=== PATIENT | female | born 1985 | race Hispanic/Latino ===

== ENCOUNTER 2018-02-26 07:54 | Outpatient (CLI) | payer OTHER ==
--- NOTE | 2018-02-26 12:51 | ULT ---
OBSTETRICAL ULTRASOUND: INDICATIONS: Evaluate size, dates, and anatomy. FINDINGS: There is a single live intrauterine gestation in a cephalic presentation. The placenta is posterior in location without evidence of previa. Cardiac activity is noted at 143 beats per minute. The biparietal diameter measured 5.49 cm, giving an estimated gestational age of 22 weeks 5 days (58t h percentile). The head circumference is measured at 20.38 cm, giving an estimated gestational age of 22 weeks 4 day s (40th percentile). The abdominal circumference is measured at 18.06 cm, giving an estimated gestational age of 22 weeks 6 days (58th percentile). Femoral length was 3.97 cm, giving an estimated gestational age of 22 weeks 6 days (52nd percentile). The estimated weight is 537 g (63rd percentile). The average gestational age by ultrasound, based on biometrics, is 22 weeks 2 days, with an est imated due date of 06/30/2018. This corresponds to the clinical age of 22 weeks 3 days, with an latisha mated due date of 06/29/2018. The visualized head, cerebellum, cisterna magna, lateral ventricle, four chamber heart, stomach , kidneys, cord insertion, bladder, spine, lips, nose, extremities, and three vessel cord are within normal limits. IMPRESSION: 1. Single live intrauterine gestation with size and dates as above. 2. survey appeared within normal limits. POS: [facility]
== END 2018-02-26 07:55 | disposition home or self-care (01) ==
LOC: ULT 07:54
PROVIDERS: ATTEND Family Medicine
DX: Z34.82 Encounter for supervision of other normal pregnancy, second trimester (principal); Z3A.22 22 weeks gestation of pregnancy
CPT/HCPCS: 76805

== ENCOUNTER 2018-06-16 21:00 | Inpatient (IN) | payer MEDICAID, OTHER, SELFPAY ==
[2018-06-17] MEDS ORDERED: Ondansetron PF 4 MG/2 ML Vial IVP PRN ×2 (00:06→13:06)
[2018-06-17] MEDS ORDERED: Lidocaine 1% (PF) 30 ML VIAL SC PRN (00:06)
[2018-06-17] MEDS ORDERED: HYDROcodone/Acetaminophen 5/325 mg Tablet PO PRN ×3 (00:06→13:06)
[2018-06-17] MEDS ORDERED: NS w/ Oxytocin 10 units 500 ML IV SCH ×2 (00:06)
[2018-06-17] MEDS ORDERED: Methylergonovine 0.2 MG/ML VIAL IM PRN (00:06)
[2018-06-17] MEDS ORDERED: Diphenoxylate HCl/Atropine Tablet PO PRN (00:06)
[2018-06-17] MEDS ORDERED: Misoprostol 200 MCG TAB PR PRN (00:06)
[2018-06-17] MEDS ORDERED: Ibuprofen 800 MG TAB PO PRN (00:06)
[2018-06-17] MEDS ORDERED: Carboprost 250 MCG/ML AMP IM PRN (00:06)
[2018-06-17] MEDS ORDERED: NS / Oxytocin 40 units/1000ml 1,000 ML IV PRN (00:06)
[2018-06-17 00:23] VITALS: BMI 31.1
[2018-06-17] MEDS: Lactated Ringer's 1,000 ML IV SCH ×2 (00:26→08:40)
[2018-06-17 00:40] LABS: Mean Corpuscular HGB CONC 34.9 g/dL (32.0-36.0); Mean Corpuscular Volume 86.1 fL (78.0-98.0); Mean Platelet Volume 6.6 fL (7.4-10.4); Platelet Count 271 thou/uL (130-400); RBC Distribution Width 13.8 % (11.5-14.5); Red Blood Cell (RBC) Count 3.99 mill/uL (4.20-5.40); White Blood Cell (WBC) Count 8.3 thou/uL (4.8-10.8)
[2018-06-17] MEDS: Misoprostol 100 MCG TAB PO SCH ×2 (00:47→09:38)
[2018-06-17 01:17] LABS: Syphilis Antibody Nonreactive (Nonreactive); Syphilis Antibody Index 0.05 S/CO (<1.00 Non-Reactive)
[2018-06-17 02:16] LABS: Hep B Surf Ag Non-Reactive S/CO (NonReactive)
[2018-06-17 02:41] LABS: HBSAg Index 0.31 S/CO (0-0.99)
[2018-06-17] MEDS: Butorphanol Tartrate 1 MG/ML VIAL SLOW IVP PRN ×3 (08:38→10:39)
[2018-06-17] MEDS ORDERED: Bisacodyl 10 MG SUPP PR PRN (13:06)
[2018-06-17] MEDS ORDERED: Milk Of Magnesia 30 ML UDCUP PO PRN (13:06)
[2018-06-17] MEDS ORDERED: diphenhydrAMINE 25 MG CAP PO PRN (13:06)
[2018-06-17] MEDS ORDERED: Benzocaine/Menthol 20-0.5% 60 ML CAN TOP PRN (13:06)
[2018-06-17] MEDS ORDERED: NS / Oxytocin 40 units/1000ml 1,000 ML IV SCH (13:06)
[2018-06-17] MEDS ORDERED: Preparation H Ointment 28 GM TUBE PR PRN (13:06)
[2018-06-17] MEDS ORDERED: Lanolin Ointment 7 GM TUBE TOP PRN (13:06)
[2018-06-17] MEDS: Ibuprofen 800 MG TAB PO SCH ×2 (13:14→21:50)
[2018-06-17] MEDS: Ferrous Sulfate 325 MG TAB PO SCH (17:10)
[2018-06-17] MEDS: Docusate Calcium (SURFAK) 240 MG CAP PO SCH (20:09)
[2018-06-18] MEDS: Ibuprofen 800 MG TAB PO SCH ×2 (05:42→14:32)
[2018-06-18 07:00] LABS: Hemoglobin 11.3 g/dL (12.0-16.0); Mean Corpuscular Volume 88.4 fL (78.0-98.0); Mean Platelet Volume 6.9 fL (7.4-10.4); Platelet Count 260 thou/uL (130-400); RBC Distribution Width 14.1 % (11.5-14.5); Red Blood Cell (RBC) Count 3.77 mill/uL (4.20-5.40); White Blood Cell (WBC) Count 10.8 thou/uL (4.8-10.8)
[2018-06-18] MEDS ORDERED: Prenatal Vitamin 1 TAB PO SCH (09:00)
[2018-06-18] MEDS: Docusate Calcium (SURFAK) 240 MG CAP PO SCH (09:55)
[2018-06-18] MEDS: Ferrous Sulfate 325 MG TAB PO SCH (09:57)
[2018-06-18 11:28] VITALS: BP 105/56; TEMP 98.4
== END 2018-06-18 15:25 | disposition home or self-care (01) | DRG 807 ==
LOC: L&D 23:27 → 3SW 06-17 15:40
PROVIDERS: ADMIT Family Medicine; ATTEND Family Medicine
PROC: 10E0XZZ Delivery of Products of Conception, External Approach (ICD-10-PCS; principal; 2018-06-16)
PROC: 10907ZC Drainage of Amniotic Fluid, Therapeutic from Products of Conception, Via Natural or Artificial Opening (ICD-10-PCS; 2018-06-16)
DX: O80 Encounter for full-term uncomplicated delivery (principal); Z37.0 Single live birth; Z3A.39 39 weeks gestation of pregnancy
CPT/HCPCS: 36415; 85027; 86780; 86850; 86900; 86901; 87340; J0595; J2001